=== PATIENT | female | born 2005 | race Caucasian/White ===

== ENCOUNTER 2024-02-18 11:52 | Emergency (ER) | payer BC ==
[~2024-02-18] VITALS: Ht 167.6 cm; Wt 68.0 kg
[2024-02-18] MEDS ORDERED: IBUPROFEN 600 MG TABLET ONE (13:04)
[2024-02-18] MEDS ORDERED: ACETAMINOPHEN ES 500 MG TABLET ONE (13:04)
[2024-02-18] MEDS: IBUPROFEN 600 MG TABLET PO ONE (13:09)
[2024-02-18] MEDS: ACETAMINOPHEN ES 500 MG TABLET PO ONE (13:09)
[2024-02-18] MEDS ORDERED: IBUP-1953 PO (13:58)
[2024-02-18 14:06] VITALS: BP 123/74; TEMP 98.6; O2SAT 98
== END 2024-02-18 14:06 | disposition home or self-care (01) ==
LOC: ER 12:13
DX: S93.401A Sprain of unspecified ligament of right ankle, initial encounter (principal); S80.211A Abrasion, right knee, initial encounter; Z88.8 Allergy status to other drugs, medicaments and biological substances; W01.0XXA Fall on same level from slipping, tripping and stumbling without subsequent striking against object, initial encounter; Y93.89 Activity, other specified; Y92.488 Other paved roadways as the place of occurrence of the external cause; Y99.8 Other external cause status
CPT/HCPCS: 73610-TC; 73630-TC

== ENCOUNTER 2024-03-31 19:23 | Emergency (ER) | payer BC ==
[~2024-03-31] VITALS: Ht 167.6 cm; Wt 59.0 kg
[~2024-03-31 19:23] MED LIST: IBUP-1953 PO
[2024-03-31 19:38] VITALS: BP 131/68; TEMP 98.1
[2024-03-31 19:54] VITALS: O2SAT 98
== END 2024-03-31 19:54 | disposition home or self-care (01) ==
LOC: ER 19:33
DX: F32.A Depression, unspecified (principal); Z88.8 Allergy status to other drugs, medicaments and biological substances